=== PATIENT | female | born 1930 | race Caucasian/White ===

== ENCOUNTER 2017-03-06 15:00 | Outpatient (RCR) | payer MEDICARE, BC | END 2017-03-06 15:30 | disposition home or self-care (01) | LOC: PT 15:00 | DX: R26.9 Unspecified abnormalities of gait and mobility (principal); W19.XXXA Unspecified fall, initial encounter ==

== ENCOUNTER 2017-05-05 02:05 | Observation (INO) | payer MEDICARE, BC ==
[~2017-05-05] VITALS: Ht 167.6 cm; Wt 95.8 kg
[2017-05-05] MEDS ORDERED: ST. JOSEPH ASPI81 M1 PO (02:27)
[2017-05-05] MEDS ORDERED: MOBIC15 M1 PO (02:27)
[2017-05-05] MEDS ORDERED: COZAAR25 M1 PO (02:28)
[2017-05-05] MEDS ORDERED: TOPROL XL 25MG25 MG PO (02:29)
[2017-05-05] MEDS ORDERED: PRAVACHOL 20MG20 MG PO (02:29)
[2017-05-05] MEDS ORDERED: FELODIPINE5 MG PO (02:29)
[2017-05-05 04:57] VITALS: BP 189/76
[2017-05-05 05:07] VITALS: BP 189/76
[2017-05-05 06:51] VITALS: BP 189/76
[2017-05-05 11:17] VITALS: BP 178/62
[2017-05-05 14:50] VITALS: BP 161/78
== END 2017-05-05 16:16 | disposition home or self-care (01) ==
LOC: ED 02:05 → MED/SURG 04:21 → ED 04:21 → MED/SURG 16:16
PROVIDERS: ADMIT Family Medicine
DX: M54.5 Low back pain (principal); I10 Essential (primary) hypertension; E78.5 Hyperlipidemia, unspecified
CPT/HCPCS: G0378; J0595; J2405

== ENCOUNTER 2018-12-27 15:12 | Emergency (ER) | payer MEDICARE, BC ==
[~2018-12-27] VITALS: Wt 99.1 kg
[~2018-12-27 15:12] MED LIST: COZAAR25 M1 PO; FELODIPINE5 MG PO; MELOXICAM7.5 MG PO; MOBIC15 M1 PO; PRAVACHOL 20MG20 MG PO; ST. JOSEPH ASPI81 M1 PO; TOPROL XL 25MG25 MG PO
[2018-12-27 15:19] VITALS: BP 201/89
[2018-12-27] MEDS ORDERED: MELOXICAM7.5 MG PO (16:48)
== END 2018-12-27 17:00 | disposition home or self-care (01) ==
LOC: ED 15:12
DX: M79.662 Pain in left lower leg (principal); G89.29 Other chronic pain; M54.9 Dorsalgia, unspecified; I10 Essential (primary) hypertension; M19.90 Unspecified osteoarthritis, unspecified site; Z79.82 Long term (current) use of aspirin; W07.XXXA Fall from chair, initial encounter; Y92.009 Unspecified place in unspecified non-institutional (private) residence as the place of occurrence of the external cause